=== PATIENT | male | born 1960 | race Caucasian/White ===

== ENCOUNTER → 2020-11-13 | Outpatient (REF) | payer BC ==
[2020-11-13 18:42] LABS: APPEARANCE, URINE CLEAR (CLEAR); BACTERIA, URINE AUTO NEGATIVE (NEGATIVE); BILIRUBIN, URINE AUTO NEGATIVE (NEGATIVE); BLOOD, URINE BLOOD 1+ (NEGATIVE); COLOR, URINE YELLOW (YELLOW); GLUCOSE, URINE (UA) AUTO NEGATIVE (NEGATIVE); KETONE, URINE AUTO NEGATIVE (NEGATIVE); LEUKOCYTE ESTERASE, URINE AUTO NEGATIVE (NEGATIVE); NITRITE, URINE AUTO NEGATIVE (NEGATIVE); PROTEIN, URINE AUTO NEGATIVE (NEGATIVE); RBC, URINE AUTO 0 /HPF (0-3); SPECIFIC GRAVITY URINE AUTO 1.014 (1.002-1.035); SQUAMOUS EPITHELIAL CELL UR AU 0 /HPF (0-6); UROBILINOGEN, URINE AUTO 0.2 mg/dL (0.0-2.0); WBC, URINE AUTO 0 /HPF (0-3)
== END ==
LOC: M SMT 17:07
PROVIDERS: ATTEND Nurse Practitioner Women's Health
DX: R97.20 Elevated prostate specific antigen [PSA] (principal)

== ENCOUNTER → 2020-12-05 | Outpatient (CLI) | payer BC, OTHER ==
--- NOTE | 2020-12-05 16:19 | REPPI ---
INDICATION: ELEVATED PSA. COMPARISON: None. TECHNIQUE: Transrectal prostate ultrasound performed, with ultrasound guidance provided for Dr. Vo who performed ultrasound-guided biopsy. FINDINGS: Prostate measures 3.5 x 2.8 x 4.7 cm, total volume 23.8 mL. Seminal vesicles are symmetrical. No focal nodule is seen in the prostate. IMPRESSION: Prostate ultrasound as above, ultrasound guidance was provided for Dr. Vo who performed ultrasound-guided biopsy of the prostate. <Electronically signed by Fabrice Machado > 12/05/20 [id number]
== END ==
LOC: M SMT PRO 09:01
PROVIDERS: ATTEND Urology
DX: C61 Malignant neoplasm of prostate (principal)
CPT/HCPCS: 76872; 76942; G0416